=== PATIENT | male | born 1950 | race American Indian/Alaskan Native ===

== ENCOUNTER 2016-08-03 08:49 | Outpatient (CLI) | payer MEDICARE, OTHER | END 2016-08-03 08:50 | disposition home or self-care (01) | LOC: ECHO 08:49 | PROVIDERS: ATTEND Internal Medicine Cardiovascular Disease | DX: R07.9 Chest pain, unspecified (principal) | CPT/HCPCS: 93017; 93320; 93325; 93350 ==